=== PATIENT | female | born 1985 | race African-American/Black ===

== ENCOUNTER → 2017-04-16 | Outpatient (CLI) | payer MEDICAID ==
[2017-04-16 15:33] LABS: ABSOLUTE EOSINOPHILS # (AUTO) 0.1 10^3/uL (0.0-0.6); ABSOLUTE LYMPHOCYTES (AUTO) 2.1 10^3/uL (0.5-4.7); ABSOLUTE MONOCYTES (AUTO) 0.4 10^3/uL (0.1-1.4); ABSOLUTE NEUT (AUTO) 1.7 10^3/uL (1.7-8.2); BASOPHILS % (AUTO) 0.6 % (0-2); EOSINOPHILS % (AUTO) 2.5 % (0-6); HEMATOCRIT 35.3 % (36.0-47.0); HGB HCT DIFFERENCE 0.7; LYMPHOCYTES % (AUTO) 47.5 % (13-45); MEAN CORPUSCULAR VOLUME 85 fl (80-97); MONOCYTES % (AUTO) 9.4 % (3-13); RED BLOOD COUNT 4.14 10^6/uL (3.72-5.28); WHITE BLOOD COUNT 4.4 10^3/uL (4.0-10.5)
[2017-04-16 15:50] LABS: ALANINE AMINOTRANSFERASE 25 U/L (9-52); ALBUMIN 4.5 g/dL (3.5-5.0); ALKALINE PHOSPHATASE 79 U/L (38-126); ANION GAP 13 (5-19); ASPARTATE AMINO TRANSFERASE 18 U/L (14-36); BILIRUBIN,DIRECT 0.3 mg/dL (0.0-0.4); BILIRUBIN,TOTAL 0.4 mg/dL (0.2-1.3); BLOOD UREA NITROGEN 16 mg/dL (7-20); CALCIUM 9.5 mg/dL (8.4-10.2); CARBON DIOXIDE 22 mmol/L (22-30); CHLORIDE 104 mmol/L (98-107); CREATININE RESULT 0.85 mg/dL (0.52-1.25); GLUCOSE 87 mg/dL (75-110); LIPASE 86.2 U/L (23-300); POTASSIUM 4.5 mmol/L (3.6-5.0); SODIUM 138.8 mmol/L (137-145); TOTAL PROTEIN 7.9 g/dL (6.3-8.2)
== END ==
LOC: OD 14:19
PROVIDERS: ATTEND Nurse Practitioner Acute Care
DX: R10.10 Upper abdominal pain, unspecified (principal)
CPT/HCPCS: 36415; 80053; 83690; 85025

== ENCOUNTER 2020-08-18 12:23 | Emergency (ER) | payer BC, MEDICAID ==
--- NOTE | 2020-08-18 13:16 | ER Document Report ---
ED Medical Screen (RME) - General Chief Complaint: Vaginal Discharge Stated Complaint: ABDOMINAL/BACK PAIN Time Seen by Provider: 08/18/20 13:07 Primary Care Provider: DOUG MOHR NP [Primary Care Provider] - Follow up as needed Notes: Patient is a 35-year-old female presents emergency department with a chief complaint of low back pain and lower abdominal pain. Reports she is having some vaginal discharge starting about a week ago. Patient is sexually active. Exam: Tender in lower abdomen. I have greeted and performed a rapid initial assessment of this patient. A comprehensive ED assessment and evaluation of the patient, analysis of test results and completion of medical decision making process will be conducted by an additional ED providers. TRAVEL OUTSIDE OF THE [place] IN LAST 30 DAYS: No - Related Data Allergies/Adverse Reactions: No Known Allergies Allergy (Verified 08/18/20 13:07) Past Medical History Pulmonary Medical History: Reports: Hx Asthma - not currently on medications Past Surgical History: Reports: Hx Section, Hx Tubal Ligation - Immunizations Hx Diphtheria, Pertussis, Tetanus Vaccination: Yes Physical Exam - Vital signs Vitals: Temp Pulse Resp BP Pulse Ox 98.1 F 93 16 109/88 H 99 08/18/20 12:53 08/18/20 12:53 08/18/20 12:53 08/18/20 12:53 08/18/20 12:53 Course - Vital Signs Vital signs: Temp Pulse Resp BP Pulse Ox 98.1 F 93 16 109/88 H 99 08/18/20 12:53 08/18/20 12:53 08/18/20 12:53 08/18/20 12:53 08/18/20 12:53 Doctor's Discharge - Discharge Referrals: DOUG MOHR NP [Primary Care Provider] - Follow up as needed
--- NOTE | 2020-08-18 13:53 | ER Document Report ---
ED GI/ - General Chief Complaint: Vaginal Discharge Stated Complaint: ABDOMINAL/BACK PAIN Time Seen by Provider: 08/18/20 13:07 Primary Care Provider: DOUG MOHR NP [Primary Care Provider] - Follow up as needed TINY SPRINGER MD [ACTIVE STAFF] - Follow up as needed Notes: CHIEF COMPLAINT: Pelvic pain and vaginal discharge for 1 week HPI: 35-year-old female presenting with pelvic pain with vaginal discharge for 1. No vaginal bleeding. Has not had nausea vomiting or fever. Denies dysuria ROS: See HPI - all other systems were reviewed and are otherwise negative Constitutional: no fever or recent illness Eyes: no drainage, no blurred vision ENT: no runny nose, no sore throat Cardiovascular: no chest pain Resp: no SOB, no cough GI: no vomiting, no diarrhea, positive pelvic pain : no dysuria, positive vaginal discharge Integumentary: no rash Allergy: no hives Musculoskeletal: no extremity pain or swelling Neurological: no numbness/tingling, no weakness MEDICATIONS: I agree with the patient medications as charted by the RN. ALLERGIES: I agree with the allergies as charted by the RN. PAST MEDICAL HISTORY/PAST SURGICAL HISTORY: Reviewed and agree as charted by RN. SOCIAL HISTORY: Reviewed and agree as charted by RN. FAMILY HISTORY: No significant familial comorbid conditions directly related to patient complaint EXAM: Reviewed vital signs as charted by RN. CONSTITUTIONAL: Alert and oriented and responds appropriately to questions. Well-appearing; well-nourished HEAD: Normocephalic; atraumatic EYES: Conjunctivae clear, sclerae non-icteric ENT: normal nose; no rhinorrhea; moist mucous membranes; pharynx without lesions noted NECK: Supple without meningismus CARD: RRR; no murmurs, no clicks, no rubs, no gallops; symmetric distal pulses RESP: Normal chest excursion without splinting or tachypnea; breath sounds clear and equal bilaterally; no wheezes, no rhonchi, no rales, 98% on room air not hypoxic ABD/GI: Normal bowel sounds; non-distended; soft, non-tender, no rebound, no guarding; no palpable organomegaly or masses : Female nurse placement assistant present. External genitalia normal. No skin lesions noted. Pelvic Exam: No active bleeding. No purulent discharge. Cervix appears normal. Mild CMT. No lesions or masses. Uterus normal size and non tender. Right/Left adnexa normal size and mildly tender bilaterally. BACK: The back appears normal and is non-tender to palpation, there is no CVA tenderness EXT: Normal ROM in all joints; non-tender to palpation; no cyanosis, no effusions, no edema SKIN: Normal color for age and race; warm; dry; good turgor; no acute lesions noted NEURO: Moves all extremities equally; Motor and sensory function intact PSYCH: The patient's mood and manner are appropriate. Grooming and personal hygiene are appropriate. MDM: 35-year-old female presenting with pelvic pain and vaginal discharge for 1 week. Initial orders placed via triage process. She is mildly generally tender in the pelvis on palpation on her bimanual exam. Will obtain ultrasound to evaluate for cyst TRAVEL OUTSIDE OF THE [place] IN LAST 30 DAYS: No - Related Data Allergies/Adverse Reactions: No Known Allergies Allergy (Verified 08/18/20 13:07) Past Medical History - General Last Menstrual Period: 08/03/20 - Social History Smoking Status: Former Smoker Family History: None. denies: Arthritis, CAD, CVA, DM, Hyperlipidemia, Hypertension, Malignancy Pulmonary Medical History: Reports: Hx Asthma - not currently on medications Past Surgical History: Reports: Hx Section, Hx Tubal Ligation - Immunizations Hx Diphtheria, Pertussis, Tetanus Vaccination: Yes Physical Exam - Vital signs Vitals: Temp Pulse Resp BP Pulse Ox 98.1 F 93 16 109/88 H 99 08/18/20 12:53 08/18/20 12:53 08/18/20 12:53 08/18/20 12:53 08/18/20 12:53 Course - Re-evaluation Re-evalutation: 08/18/20 16:04 Patient ultrasound does not show acute findings. She is positive for vaginitis and possible UTI. Likely the source of her symptoms. Will place patient on Flagyl, Keflex, refer to SUPERCHARGER REPAIR SUPERVISOR for follow-up 08/18/20 16:04 She does not have significant pain suggesting PID at this time - Vital Signs Vital signs: Temp Pulse Resp BP Pulse Ox 98.1 F 93 16 109/88 H 99 08/18/20 12:53 08/18/20 12:53 08/18/20 12:53 08/18/20 12:53 08/18/20 12:53 - Laboratory Results Result Diagrams: 08/18/20 13:34 08/18/20 13:34 Laboratory Results Interpreted: 08/18/20 08/18/20 13:34 15:17 Potassium 3.2 L Total Protein 8.7 H Urine Protein 100 H Urine Ketones 20 H Urine Urobilinogen 2.0 H Ur Leukocyte Esterase MODERATE H Critical Laboratory Results Reviewed: No Critical Results - Radiology Results Critical Radiology Results Reviewed: No Critical Results Discharge - Discharge Clinical Impression: Acute pelvic pain, female, Bacterial vaginitis, Hypokalemia UTI (urinary tract infection) Qualifiers: Urinary tract infection type: acute cystitis Hematuria presence: with hematuria Qualified Code(s): N30.01 - Acute cystitis with hematuria Condition: Stable Disposition: HOME, SELF-CARE Additional Instructions: Your ultrasound did not show acute findings. You have bacterial vaginitis and also a urinary infection. Take the Keflex and Flagyl to treat this. Take Voltaren consistently for pain. Follow-up with SUPERCHARGER REPAIR SUPERVISOR or your primary care provider for further evaluation and management of symptoms call for appointment. It was also noted that your potassium was slightly low today make sure you increase your diet of potassium containing foods such as bananas, green leafy vegetables Prescriptions: Metronidazole [Flagyl 500 mg Tablet] 500 mg PO BID #14 tablet Cephalexin Monohydrate [Keflex 500 mg Capsule] 500 mg PO Q6H 7 Days #28 capsule Diclofenac Sodium [Voltaren 50 Mg Tablet.] 50 mg PO BID #20 tablet. Referrals: DOUG MOHR NP [Primary Care Provider] - Follow up as needed TINY SPRINGER MD [ACTIVE STAFF] - Follow up as needed
[2020-08-18 13:56] LABS: ABSOLUTE LYMPHOCYTES (AUTO) 2.3 10^3/uL (0.5-4.7); ABSOLUTE MONOCYTES (AUTO) 0.6 10^3/uL (0.1-1.4); ABSOLUTE NEUT (AUTO) 2.3 10^3/uL (1.7-8.2); BASOPHILS % (AUTO) 0.4 % (0-2); EOSINOPHILS % (AUTO) 0.4 % (0-6); HEMATOCRIT 39.8 % (36.0-47.0); HEMOGLOBIN 13.3 g/dL (12.0-15.5); MEAN CORPUSCULAR HEMOGLOBIN 28.2 pg (27.0-33.4); MEAN CORPUSCULAR HGB CONC 33.4 g/dL (32.0-36.0); MEAN CORPUSCULAR VOLUME 85 fl (80-97); MONOCYTES % (AUTO) 11.7 % (3-13); PLATELET COUNT 280 10^3/uL (150-450); RED CELL DISTRIBUTION WIDTH 13.5 % (11.5-14.0); SEGMENTED NEUTROPHILS % (AUTO) 43.5 % (42-78); TOTAL CELLS COUNTED % (AUTO) 100 %; WHITE BLOOD COUNT 5.3 10^3/uL (4.0-10.5)
[2020-08-18 14:08] LABS: BACTERIA (WET MOUNT) 4+ BACTERIA SEEN; EPITHELIALS (WET MOUNT) 4+ EPITHELIALS SEEN; T.VAGINALIS (WET MOUNT) COULD NOT PERFORM; WBCS (WET MOUNT) FEW WBCS SEEN; YEAST (WET MOUNT) NO YEAST SEEN
[2020-08-18 14:10] LABS: ALBUMIN 4.9 g/dL (3.5-5.0); ALKALINE PHOSPHATASE 87 U/L (38-126); ANION GAP 9 (5-19); ASPARTATE AMINO TRANSFERASE 21 U/L (14-36); BILIRUBIN,DIRECT 0.1 mg/dL (0.0-0.4); BILIRUBIN,TOTAL 1.1 mg/dL (0.2-1.3); BLOOD UREA NITROGEN 14 mg/dL (7-20); CARBON DIOXIDE 28 mmol/L (22-30); CHLORIDE 101 mmol/L (98-107); GLUCOSE 110 mg/dL (75-110); POTASSIUM 3.2 mmol/L (3.6-5.0); TOTAL PROTEIN 8.7 g/dL (6.3-8.2)
[2020-08-18 15:41] LABS: APPEARANCE,URINE SLIGHTLY-CLOUDY; BILIRUBIN,URINE NEGATIVE (NEGATIVE); COLOR,URINE AMBER; GLUCOSE, URINE NEGATIVE (NEGATIVE); KETONES,URINE 20 mg/dL (NEGATIVE); LEUKOCYTE ESTERASE,URINE MODERATE (NEGATIVE); NITRITE,URINE NEGATIVE (NEGATIVE); PROTEIN,URINE 100 mg/dL (NEGATIVE)
--- NOTE | 2020-08-18 15:43 | RADIOLOGY REPORT (SQ) ---
EXAM DESCRIPTION: U/S NON OB PEL TV W/DOPPLER IMAGES COMPLETED DATE/TIME: 08/18/2020 1:52 pm REASON FOR STUDY: pelvic pain COMPARISON: None. TECHNIQUE: Dynamic and static grayscale images acquired of the pelvis via transvaginal approach and recorded on PACS. Additional selected color Doppler and spectral images recorded. LIMITATIONS: None. FINDINGS: UTERUS: Contour normal. No mass. ENDOMETRIAL STRIPE: No focal or generalized thickening. No masses. CERVIX: No nabothian cysts. RIGHT OVARY AND DOPPLER: Normal size. No worrisome masses. Normal arterial vascular flow without evid ence for torsion. LEFT OVARY AND DOPPLER: Normal size. No worrisome masses. Normal arterial vascular flow without evide nce for torsion. FREE FLUID: None noted. OTHER: No other significant finding. MEASUREMENTS: UTERUS: 7.3 x 3.8 x 4.3 cm ENDOMETRIAL STRIPE: 1 mm RIGHT OVARY: 3.5 x 1.9 x 1.7 cm LEFT OVARY: 2.9 x 1.8 x 1.6 cm IMPRESSION: No sonographic abnormality of the uterus or ovaries. TECHNICAL DOCUMENTATION: JOB ID: [id number] [employer]- All Rights Reserved Rev Reading location - IP/workstation name: [email or web address]
[2020-08-18 15:47] LABS: CHLAM PCR NOT DETECTED (NOT DETECT)
[2020-08-18] MEDS ORDERED: POTASSIUM CHLORIDE 10 MEQ TABLET.ER PO ONE (16:06)
[2020-08-18 16:20] VITALS: BP 114/75
--- OUTSIDE RECORDS SUMMARY | 2020-08-20 10:43 | XMS REPORT ---
:1985 Author Organization [facility] Address [facility] [place] [address] [place] [address] Care Team Providers Name Role Phone Angelique Gruber Attending Clinician Unavailable Pérez Mccord Attending Clinician Unavailable Allergies, Adverse Reactions, Alerts This patient has no known allergies or adverse reactions. Medications This patient has no known medications. Problems This patient has no known problems. Procedures Procedure Date / Time Performed Performing Clinician Ama e OFFICE/OUTPATIENT VISIT EST 2019-07-14 15:55:00 OFFICE/OUTPATIENT VISIT EST 2015-03-05 18:30:00 PSYCH DIAGNOSTIC EVAL (WITH MEDICAL 2015-02-20 18:00:00 SERVICES) Results Test Description Test Time Test Comments Text Results Atomic Results Result Comments SARS-CoV-2 RNA Resp Ql SHANELL+probe 2020-06-15 00:00:00 Test Item Value Reference Range Comments SARS-CoV-2 RNA Resp Ql SHANELL+probe Detected [place] Cov[facility] Case ID: (test code = 57574-4) [id number] CBC WITH DIFF\[id number] 14:36:00 Test Item Value Reference Range Comments MONOCYTES % (AUTO) (test code = MO%) 9.4 % 3-13 HEMOGLOBIN (test code = HGB) 12.0 g/dL 12.0-15.5 RED BLOOD COUNT (test code = RBC) 4.14 10 6/uL 3.72-5.28 LYMPHOCYTES % (AUTO) (test code = LY%) 47.5 % 13-45 EOSINOPHILS % (AUTO) (test code = EO%) 2.5 % 0-6 MEAN CORPUSCULAR HGB CONC (test code = MCHC) 34.0 g/dL 32. 0-36.0 RED CELL DISTRIBUTION WIDTH (test code = RDW) 13.0 % 11 .5-14.0 HEMATOCRIT (test code = HCT) 35.3 % 36.0-47.0 BASOPHILS % (AUTO) (test code = BA%) 0.6 % 0-2 MEAN CORPUSCULAR VOLUME (test code = MCV) 85 fl 80-97 BASOPHILS % (AUTO) (test code = BA%15) 0.6 % 0-2 ABSOLUTE NEUT (AUTO) (test code = NE#) 1.7 10 3/uL 1.7-8.2 RED BLOOD COUNT (test code = RBC17) 4.14 10 6/uL 3.72-5.28 ABSOLUTE MONOCYTES (AUTO) (test code = MO#) 0.4 10 3/uL 0.1- 1.4 MEAN CORPUSCULAR HEMOGLOBIN (test code = MCH) 29.0 pg 27 .0-33.4 ABSOLUTE NEUT (AUTO) (test code = NE#20) 1.7 10 3/uL 1.7-8.2 SEGMENTED NEUTROPHILS % (AUTO) (test code = 40.0 % 42-7 8 SEG%) HEMOGLOBIN (test code = HGB22) 12.0 g/dL 12.0-15.5 ABSOLUTE BASOPHILS # (AUTO) (test code = BA#) 0.0 10 3/uL 0. 0-0.2 SEGMENTED NEUTROPHILS % (AUTO) (test code = 40.0 % 42-7 8 SEG%24) ABSOLUTE EOSINOPHILS # (AUTO) (test code = EO#) 0.1 10 3/uL 0.0-0.6 PLATELET COUNT (test code = PLT) 237 10 3/uL 150-450 MONOCYTES % (AUTO) (test code = MO%27) 9.4 % 3-13 ABSOLUTE LYMPHOCYTES (AUTO) (test code = LY#) 2.1 10 3/uL 0. 5-4.7 MEAN CORPUSCULAR HEMOGLOBIN (test code = MCH29) 29.0 pg 27.0-33.4 EOSINOPHILS % (AUTO) (test code = EO%30) 2.5 % 0-6 RED CELL DISTRIBUTION WIDTH (test code = RDW31) 13.0 % 11.5-14.0 HEMATOCRIT (test code = HCT32) 35.3 % 36.0-47.0 ABSOLUTE MONOCYTES (AUTO) (test code = MO#33) 0.4 10 3/uL 0. 1-1.4 MEAN CORPUSCULAR VOLUME (test code = MCV34) 85 fl 80-9 7 ABSOLUTE BASOPHILS # (AUTO) (test code = BA#35) 0.0 10 3/uL 0.0-0.2 ABSOLUTE LYMPHOCYTES (AUTO) (test code = LY#36) 2.1 10 3/uL 0.5-4.7 ABSOLUTE EOSINOPHILS # (AUTO) (test code = 0.1 10 3/uL 0.0-0 .6 EO#37) WHITE BLOOD COUNT (test code = WBC) 4.4 10 3/uL 4.0-10.5 MEAN CORPUSCULAR HGB CONC (test code = MCHC39) 34.0 g/dL 3 2.0-36.0 WHITE BLOOD COUNT (test code = WBC40) 4.4 10 3/uL 4.0-10.5 LYMPHOCYTES % (AUTO) (test code = LY%41) 47.5 % 13-45 PLATELET COUNT (test code = PLT42) 237 10 3/uL 150-450 COMPREHENSIVE METABOLIC PANEL\[id number] 14:36:00 Test Item Value Reference Range Comments TOTAL PROTEIN (test code = TP) 7.9 g/dL 6.3-8.2 CREATININE RESULT (test code = CREA) 0.85 mg/dL 0.52-1.25 CHLORIDE (test code = CL-1) 104 mmol/L 98-107 SODIUM (test code = NA) 138.8 mmol/L 137-145 ALANINE AMINOTRANSFERASE (test code = ALT) 25 U/L 9-52 POTASSIUM (test code = K) 4.5 mmol/L 3.6-5.0 BLOOD UREA NITROGEN (test code = BUN) 16 mg/dL 7-20 BILIRUBIN,TOTAL (test code = TBIL) 0.4 mg/dL 0.2-1.3 GLUCOSE (test code = GLU) 87 mg/dL 75-110 ALBUMIN (test code = ALB) 4.5 g/dL 3.5-5.0 ANION GAP (test code = ANION) 13 5-19 BILIRUBIN,DIRECT (test code = BC) 0.3 mg/dL 0.0-0.4 CARBON DIOXIDE (test code = CO2) 22 mmol/L 22-30 ASPARTATE AMINO TRANSFERASE (test code = AST) 18 U/L 14 -36 ALKALINE PHOSPHATASE (test code = ALKP) 79 U/L 38-126 CALCIUM (test code = CA) 9.5 mg/dL 8.4-10.2 EGFR,NON (test code = GFRN) > 60 >60 EGFR, (test code = GFRAA) > 60 >60 LIPASE\[id number] 14:36:00 Test Item Value Reference Range Comments LIPASE (test code = LIPA) 86.2 U/L 23-300 URINE CULTURE\S\[id number] 12:30:00 Test Item Value Reference Range Comments MIXED UROGENITAL AMAIRANI (test code = MSF) Assessments Condition Name Status Diagnosis Date Treating Clinici an Body mass index (BMI) 30.0-30.9, adult Active Pain in unspecified hand Active Pain in unspecified foot Active Right upper quadrant pain Active Obsessive-compulsive disorders Active Posttraumatic stress disorder Active Schizoaffective disorder, unspecified Active Overweight Active Schizoaffective disorder, unspecified Active Posttraumatic stress disorder Active Obsessive-compulsive disorders Active Overweight Active Encounters Start End Encounter Admission Attending Care Care Encounter Date/Time Date/Time Type Type Clinicians Facility Department ID 2019-07-14 2019-07-14 [facility] [id number] 15:55:00 15:55:00 Angelique Children [id number] s [id number] and [id number] [facility], 2015-03-05 2015-03-05 Outpatient [facility] 5 [id number] 18:30:00 18:30:00 Pérez Russell [id number] s [id number] and [id number] [facility], 2015-02-20 2015-02-20 Outpatient [facility] F [id number] 18:00:00 18:00:00 Pérez Russell [id number] s [id number] and [id number] [facility], Social History This patient has no known social history. Vital Signs This patient has no known vital signs.
== END 2020-08-18 16:29 | disposition home or self-care (01) ==
LOC: ER 12:23
DX: N76.0 Acute vaginitis (principal); B96.89 Other specified bacterial agents as the cause of diseases classified elsewhere; N30.01 Acute cystitis with hematuria; E87.6 Hypokalemia; R10.2 Pelvic and perineal pain; M54.5 Low back pain; R10.30 Lower abdominal pain, unspecified
CPT/HCPCS: 36415; 76830; 80053; 81001; 81025; 83690; 85025; 87210; 87491; 87591; 93976; 99284